=== PATIENT | male | born 2000 | race African-American/Black ===

== ENCOUNTER 2019-02-03 12:21 | Emergency (ER) | payer OTHER | END 2019-02-03 14:21 | disposition home or self-care (01) | LOC: JER 12:21 ==

== ENCOUNTER 2021-07-15 17:11 | Emergency (ER) | payer OTHER ==
[2021-07-15 17:38] VITALS: BP 126/68; PULSE 95; TEMP 98.2; BMI 25.0
[2021-07-15] MEDS ORDERED: DIPHTH,PERTUSS(ACELL),TET 0.5 ML DISP.SYRIN IM ONE ×2 (20:08→20:13)
== END 2021-07-15 20:47 | disposition home or self-care (01) ==
LOC: JER 17:11 → JERFT 17:11
PROC: 3E0234Z Introduction of Serum, Toxoid and Vaccine into Muscle, Percutaneous Approach (ICD-10-PCS; principal; 2021-07-15)
DX: S01.81XA Laceration without foreign body of other part of head, initial encounter (principal); W26.8XXA Contact with other sharp object(s), not elsewhere classified, initial encounter
CPT/HCPCS: 90715; 99284-25